=== PATIENT | male | born 1985 | race American Indian/Alaskan Native ===

== ENCOUNTER 2017-01-05 21:47 | Emergency (ER) | payer MEDICAID, SELFPAY ==
[~2017-01-05] VITALS: Ht 160 cm; Wt 56.0 kg
[2017-01-05 22:31] LABS: HEMATOCRIT 46.5 % (39.2-51.8); HEMOGLOBIN 15.9 g/dL (13.7-18.0); WHITE BLOOD COUNT 7.4 x10^3/uL (3.4-10)
[2017-01-05 22:42] LABS: BLOOD UREA NITROGEN 17 mg/dL (7-18)
[2017-01-05 22:47] LABS: IS PT STATUS REG ER OR PRE ER? YES
[2017-01-05] MEDS ORDERED: KETOROLAC 30 MG/1 ML ONE (22:52)
[2017-01-05] MEDS ORDERED: KETOROLAC 30 MG/1 ML IM ONE (23:00)
[2017-01-05 23:51] VITALS: BP 110/75
== END 2017-01-05 23:53 | disposition home or self-care (01) ==
LOC: ED 23:32
DX: R51 Headache (principal); R09.1 Pleurisy; F17.200 Nicotine dependence, unspecified, uncomplicated; R07.9 Chest pain, unspecified
CPT/HCPCS: 36415; 70450; 71020; 80048; 82040; 84484; 85025; 99285